=== PATIENT | female | born 1960 | race Caucasian/White ===

== ENCOUNTER 2017-11-29 09:47 | Emergency (ER) | payer OTHER ==
[2017-11-29] MEDS: ACETAMINOPHEN 500 MG TAB PO (11:16)
[2017-11-29 12:14] LABS: URINE BLOOD (Dip) POC 1+ (NEGATIVE); URINE GLUCOSE (Dip) POC Negative (NEGATIVE); URINE KETONES (Dip) POC 2+ (NEGATIVE); URINE LEUKOCYTE EST (Dip) POC Negative (NEGATIVE); URINE NITRITE (Dip) POC Negative (NEGATIVE); URINE TOTAL PROTEIN POC Negative (NEGATIVE)
[2017-11-29 12:14] LABS: URINE PH (Dip) POC 6.5 (5.0-8.5)
== END 2017-11-29 12:38 | disposition home or self-care (01) ==
LOC: FTE 09:47
DX: J06.9 Acute upper respiratory infection, unspecified (principal)
CPT/HCPCS: 71045; 81003; 87400; 99284-25